=== PATIENT | male | born 1990 | race Caucasian/White ===

== ENCOUNTER 2022-07-10 11:25 | Emergency (ER) | payer MEDICAID ==
[~2022-07-10] VITALS: Ht 180.3 cm; Wt 141.0 kg
[2022-07-10 11:58] VITALS: BP 145/108
[2022-07-10] MEDS ORDERED: KETOROLAC 30MG/ML VIAL IM ONE (14:00)
[2022-07-10] MEDS ORDERED: BENZ100C86 MT (14:11)
== END 2022-07-10 14:24 | disposition home or self-care (01) ==
LOC: ER 11:33
DX: J06.9 Acute upper respiratory infection, unspecified (principal); R05.9 Cough, unspecified; E66.9 Obesity, unspecified; Z68.41 Body mass index [BMI] 40.0-44.9, adult; Z98.890 Other specified postprocedural states
CPT/HCPCS: 71045; 96372; 99283; J1885

== ENCOUNTER 2023-05-16 05:01 | Emergency (ER) | payer MEDICAID, OTHER ==
[~2023-05-16] VITALS: Ht 180.3 cm; Wt 135.0 kg
[~2023-05-16 05:01] MED LIST: BENZ100C86 MT
[2023-05-16 05:24] VITALS: O2SAT 96
[2023-05-16 05:33] VITALS: TEMP 99.4
[2023-05-16] MEDS ORDERED: ONDANSETRON HCL 4MG/2ML INJ IV ONE (07:30)
[2023-05-16] MEDS ORDERED: LACTATED RINGERS 1,000 ML IV SCH (07:30)
[2023-05-16 08:21] LABS: BASOPHILS % 0.3 % (0.0-2.0); EOSINOPHILS % 0.1 % (0.0-5.0); HEMATOCRIT. 48.3 % (42.0-52.0); HEMOGLOBIN. 16.6 g/dL (14.0-18.0); LYMPHOCYTES % 14.6 % (20.0-50.0); MEAN CORPUSCULAR HEMOGLOBIN 30.5 pg (28.0-32.0); MEAN CORPUSCULAR HGB CONC 34.4 g/dL (31.0-37.0); MEAN CORPUSCULAR VOLUME 88.6 fL (80.0-94.0); MEAN PLATELET VOLUME 8.3 fl (7.4-10.4); MONOCYTES % 7.6 % (2.0-8.0); NEUTROPHILS % 77.4 % (40.0-76.0); PLATELET 199 x1000/uL (130-400); RED BLOOD CELL COUNT 5.45 mill/uL (4.7-6.1); RED CELL DISTRIBUTION WIDTH 13.7 % (11.6-14.6); WHITE BLOOD COUNT 7.6 x1000/uL (4.5-11.0)
[2023-05-16 08:28] LABS: CHLORIDE 103 mEq/L (98-107); INDEX HEMOLYSI 1 (1-3); INDEX ICTERIC 1 (1-4); INDEX LIPEMIC 1 (1-3); POTASSIUM 3.8 mEq/L (3.5-5.1); SODIUM 134 mEq/L (136-145)
[2023-05-16 08:40] LABS: ALANINE AMINOTRANSFERASE 59 IU/L (13-61); ALBUMIN 3.9 g/dL (3.4-5.0); ASPARTATE AMINOTRANSFERASE 54 IU/L (15-37); BILIRUBIN TOTAL 0.5 mg/dL (0.1-1.0); CALCIUM 8.7 mg/dL (8.5-10.1); CARBON DIOXIDE 23 mEq/L (21-32); GLUCOSE 152 mg/dL (70-105); PROTEIN TOTAL 8.8 g/dL (6.0-8.3); UREA NITROGEN BLOOD 9 mg/dL (7-21)
[2023-05-16] MEDS ORDERED: ONDANSETRON HCL 4MG/2ML INJ IV NR (08:45)
[2023-05-16] MEDS ORDERED: ONDA4TAB11 PO (10:06)
[2023-05-16 11:18] VITALS: BP 130/89; PULSE 87; RESP 16
== END 2023-05-16 11:21 | disposition home or self-care (01) ==
LOC: ER 05:01
DX: B34.9 Viral infection, unspecified (principal); Z98.890 Other specified postprocedural states
CPT/HCPCS: 80053; 83690; 85025; 87804 ×2; 36415; 71046; 96361; 96374; 99284; 87426; J2405; C9803; Z7610 ×2

== ENCOUNTER 2024-09-27 15:09 | Emergency (ER) | payer OTHER ==
[~2024-09-27] VITALS: Ht 180.3 cm; Wt 134.5 kg
[~2024-09-27 15:09] MED LIST changes: +ONDA-239 PO
[2024-09-27 15:12] VITALS: O2SAT 99
[2024-09-27 15:17] VITALS: BP 165/97; PULSE 84; RESP 18; TEMP 36.9; O2SAT 96
[2024-09-27] MEDS: IBUPROFEN 800MG TABLET PO ONE (16:07)
[2024-09-27] MEDS: ACETAMINOPHEN 325MG TABLET PO ONE (16:07)
[2024-09-27] MEDS ORDERED: TOPUD MT (17:16)
[2024-09-27] MEDS ORDERED: SALI7GEL TP (17:16)
[2024-09-27] MEDS ORDERED: IBUP-1525 MT (17:16)
== END 2024-09-27 17:46 | disposition home or self-care (01) ==
LOC: ER 15:09
DX: B07.0 Plantar wart (principal); F10.90 Alcohol use, unspecified, uncomplicated; Z79.1 Long term (current) use of non-steroidal anti-inflammatories (NSAID); Y90.9 Presence of alcohol in blood, level not specified
CPT/HCPCS: 73630; 99283